=== PATIENT | male | born 1970 | race Two or more races ===

== ENCOUNTER 2021-02-11 17:15 | Emergency (ER) | payer MEDICAID, OTHER ==
[~2021-02-11] VITALS: Ht 165.1 cm; Wt 74.8 kg
[2021-02-11 17:45] VITALS: BP 168/84
== END 2021-02-11 19:09 | disposition home or self-care (01) ==
LOC: ER 17:15
DX: F10.10 Alcohol abuse, uncomplicated (principal); R11.0 Nausea; F17.210 Nicotine dependence, cigarettes, uncomplicated; Y90.9 Presence of alcohol in blood, level not specified